=== PATIENT | female | born 1995 | race Two or more races ===

== ENCOUNTER 2016-08-24 11:38 | Observation (INO) | payer MEDICAID | END 2016-08-24 13:05 | disposition home or self-care (01) | DRG 566 | LOC: LDRP 11:38 | PROVIDERS: ADMIT Obstetrics & Gynecology; ATTEND Obstetrics & Gynecology | DX: O26.893 Other specified pregnancy related conditions, third trimester (principal); Z3A.36 36 weeks gestation of pregnancy | CPT/HCPCS: 59025; 76805; 76818; 81002; G0378 ==

== ENCOUNTER 2016-08-29 14:00 | Observation (INO) | payer MEDICAID | END 2016-08-29 15:05 | disposition home or self-care (01) | DRG 566 | LOC: LDRP 14:00 | PROVIDERS: ADMIT Specialist; ATTEND Specialist | DX: O36.5930 Maternal care for other known or suspected poor fetal growth, third trimester, not applicable or unspecified (principal); L29.8 Other pruritus; T63.441A Toxic effect of venom of bees, accidental (unintentional), initial encounter; Z3A.38 38 weeks gestation of pregnancy; Y92.89 Other specified places as the place of occurrence of the external cause | CPT/HCPCS: 59025; 76818; 81002; G0378 ==

== ENCOUNTER 2016-08-31 04:06 | Inpatient (IN) | payer MEDICAID ==
[~2016-08-31] VITALS: Ht 30.5 cm; Wt 0.5 kg
[2016-08-31] MEDS ORDERED: LACT. RINGERS/OXYTOCIN 20UNITS 1,000 ML IV SCH (04:24)
[2016-08-31] MEDS ORDERED: LACTATED RINGER'S 1,000 ML IV SCH (04:24)
[2016-08-31] MEDS ORDERED: DERMOPLAST 60ML BOTTLE TOP PRN (04:30)
[2016-08-31] MEDS ORDERED: NALBUPHINE HCL 10 MG/1ml INJECTION IV PRN (04:30)
[2016-08-31] MEDS ORDERED: LIDOCAINE 2%HCL (LOCAL ANESTH.) INJ 20ML MDV IJ ONE (04:30)
[2016-08-31] MEDS ORDERED: WITCH HAZEL-GLYCERIN PAD TOP PRN (04:30)
[2016-08-31] MEDS ORDERED: PHISODERM TOP SOLN 240ML BTL TOP PRN (04:30)
[2016-08-31] MEDS ORDERED: CARBOPROST TROMETHAMINE 250 MCG/1ML VIAL IM PRN (04:30)
[2016-08-31] MEDS ORDERED: METHYLERGONOVINE MALEATE 0.2 MG/ML AMP IM PRN (04:30)
[2016-08-31] MEDS ORDERED: BUTORPHANOL TARTRATE 2 MG/1 ML VIAL ONE (04:57)
[2016-08-31] MEDS ORDERED: BUTORPHANOL TARTRATE 2 MG/1 ML VIAL IV PRN (05:00)
[2016-08-31 05:11] LABS: Basophils # (auto) 0.1 uL; Basophils % (auto) 0.6 % (0.0-2.0); CONDITION Y; Eosinophils # (auto) 0.2 uL; Eosinophils % (auto) 1.8 % (0.0-7.0); Hematocrit 35.9 % (36.0-46.0); Hemoglobin 12.3 g/dL (12.2-16.2); Lymphocytes # (auto) 2.2 uL; Lymphocytes % (auto) 22.5 % (10.0-50.0); Mean Corpuscular Hemoglobin 32.6 pg (28.0-32.0); Mean Corpuscular Hgb Conc. 34.3 g/dL (32.0-36.0); Mean Corpuscular Volume 95.1 fL (80.0-100.0); Mean Platelet Volume 8.8 fL (7.4-10.4); Monocytes # (auto) 0.6 uL; Monocytes % (auto) 6.4 % (0.0-12.0); Neutrophils # (auto) 6.7 uL; Neutrophils % (auto) 68.7 % (37.0-80.0); Platelet Count (auto) 218 10^3/uL (140-450); Red Cell Distribution Width 13.4 % (11.6-16.0); White Blood Cell 9.7 10^3/uL (4.4-10.8)
[2016-08-31 05:20] LABS: Urine Bilirubin Negative (Negative); Urine Color PINK (Yellow); Urine Glucose Normal (Normal); Urine Ketone Negative (Negative); Urine Nitrite Negative (Negative); Urine RBC 247 /hpf (0 - 4); Urine Squamous Epithelial Cell MANY /hpf (<5); Urine Urobilinogen Normal (Negative); Urine pH 7.5 (5.0-8.0)
[2016-08-31 05:21] LABS: Urine Blood 2+ /uL (Negative)
[2016-08-31 05:24] LABS: INR 0.9 (0.9-1.15); Partial Thromboplastin Time 26.9 sec (22.64-33.71); Prothrombin Time 9.8 sec (9.37-12.3)
[2016-08-31 05:45] LABS: Albumin 2.6 g/dL (3.4-5.0); BUN/Creatinine Ratio 17.4; Bilirubin, Total 0.2 mg/dL (0.2-1.0); Calcium 8.4 mg/dL (8.5-10.1); Potassium 3.7 mmol/L (3.5-5.1); Total Protein 6.1 g/dL (6.4-8.2)
[2016-08-31] MEDS ORDERED: LACT. RINGERS/OXYTOCIN 20UNITS 500 ML IV ONE (06:46)
[2016-08-31] MEDS ORDERED: PREN-96 PO (06:50)
[2016-08-31 07:41] VITALS: BP 108/68
[2016-08-31] MEDS: IBUPROFEN 600 MG TAB PO PRN ×2 (08:08→13:50)
[2016-08-31 08:28] VITALS: BP 106/73
[2016-08-31 11:40] VITALS: BP 98/59
[2016-08-31 16:00] VITALS: BP 100/69
[2016-08-31 19:55] VITALS: BP 111/60
[2016-08-31 23:34] VITALS: BP 112/69
[2016-09-01] MEDS: IBUPROFEN 600 MG TAB PO PRN ×2 (00:51→06:29)
[2016-09-01 03:41] VITALS: BP 106/60
[2016-09-01 08:00] VITALS: BP 106/53
== END 2016-09-01 11:50 | disposition home or self-care (01) | DRG 560 ==
LOC: OBSVTOIN 04:06 → LDRP 04:06
PROVIDERS: ADMIT Obstetrics & Gynecology; ATTEND Obstetrics & Gynecology
PROC: 10E0XZZ Delivery of Products of Conception, External Approach (ICD-10-PCS; principal; 2016-08-31)
DX: O69.89X0 Labor and delivery complicated by other cord complications, not applicable or unspecified (principal); Z37.0 Single live birth; Z3A.38 38 weeks gestation of pregnancy
CPT/HCPCS: 36415; 59025; 59409; 80053; 81001; 81002; 85025; 85610; 85730; 86850; 86900; 86901; 96361; 96366; 96374; J2590

== ENCOUNTER 2019-02-04 19:00 | Emergency (ER) | payer MEDICAID ==
[~2019-02-04] VITALS: Ht 160 cm; Wt 49.9 kg
[~2019-02-04 19:00] MED LIST: PREN-96 PO
[2019-02-04 19:10] VITALS: BP 104/62
[2019-02-04] MEDS ORDERED: TETANUS-DIPTH-ACEL PERTUSSIS 0.5ML SYRG IM ONE (22:30)
== END 2019-02-05 00:17 | disposition home or self-care (01) ==
LOC: ER 19:00
DX: S61.211A Laceration without foreign body of left index finger without damage to nail, initial encounter (principal); W26.0XXA Contact with knife, initial encounter; Y93.G3 Activity, cooking and baking; Y92.090 Kitchen in other non-institutional residence as the place of occurrence of the external cause; Y99.8 Other external cause status
CPT/HCPCS: 12002; 90471; 90715

== ENCOUNTER 2019-02-15 12:34 | Emergency (ER) | payer MEDICAID ==
[~2019-02-15] VITALS: Ht 160 cm; Wt 49.9 kg
[2019-02-15 12:49] VITALS: BP 106/59
== END 2019-02-15 13:19 | disposition left against medical advice (07) ==
LOC: ER 12:34
DX: S61.211D Laceration without foreign body of left index finger without damage to nail, subsequent encounter (principal); Z48.02 Encounter for removal of sutures; X58.XXXD Exposure to other specified factors, subsequent encounter